=== PATIENT | female | born 1995 | race Two or more races ===

== ENCOUNTER 2023-10-12 00:15 | Observation (INO) ==
--- NOTE | 2023-10-12 01:01 | DR.CP ---
HPI Time Seen Time Seen by Provider: 10/12/23 01:01 PCP Primary Care Physician: NFD Complaint Chief Complaint Doctor Comments: Patient states that she has been having epigastric pain radiating to her esophagus and to her back for 2 hrs. Patient denies: fever, hematemesis, hematochezia,urinary sxs, n,v. Chief Complaint:: PT AMBULATORY IN ED WITH C/O EPIGASTRIC PAIN AND UP ESOPHAGUS RADIATING THROUGH TO BACK AND RIGHT SIDE THAT STARTED APPROX 2 HRS AGO. COVID-19 Coronavirus risk:travel/contact w/high risk person: No Has patient experienced Coronavirus symptoms: No Source History Provided: Patient Mode of Arrival Mode of Arrival: Ambulatory Timing Onset of Chief Complaint: 10/11/23 PMH PMH Past Medical History: No Past Surgical History: No Surgical History: No History Family History History of Family Medical Conditions: Yes Family Medical History: Diabetes Mellitus Social History Does patient currently use any type of tobacco product: No Have you used tobacco products in the last 12 months: No Type of Tobacco Use: None Does any household member use tobacco: No Alcohol Use: None Do you use any recreational Drugs:: No Lives With: Family Lives Where: Home Travel Risk Coronavirus risk:travel/contact w/high risk person: No Has patient experienced Coronavirus symptoms: No Infectious screening In the last 2 months have you had wt loss of >10#?: NO Have you had fever, night sweats or hemotysis?: No Have you traveled outside the country in the last 6 months?: No Isolation: Standard ROS Review of Systems Constitutional: negative Fever Eyes: No Symptoms Reported ENTM: No Symptoms Reported Respiratoy: No Symptoms Reported Cardiovascular: No Symptoms Reported Gastrointestinal/Abdominal: Abdominal Pain (epigastrium) and Food Intolerance; negative Nausea or Vomiting Genitourinary: No Symptoms Reported Neurological: No Symptoms Reported Musculoskeletal: Back Pain (pain radiates to back) Integumentary: No Symptoms Reported Hematologic/Lymphatic: No Symptoms Reported Endocrine: No Symptoms Reported Psychiatric: No Symptoms Reported All Other Systems: Reviewed and Negative PE Vitals Vitals: Vital Signs Temperature 98.0 F Pulse Rate 78 Respiratory Rate 20 Respiratory Rate 20 Blood Pressure 137/74 O2 Sat by Pulse Oximetry 97 General Limitations: No Limitations General Appearance: Alert and In No Apparent Distress Head Head Exam: Normal Inspection Eyes Eye exam: Normal Appearance ENT ENT Exam: Normal Exam Chest Chest Inspection: Normal Inspection Respiratory Respiratory Exam: Normal Lung Sounds Bilat Respiratory Exam: Bilateral: Clear to Auscultation Cardiovascular Cardiovascular Exam: Regular Rate and Normal Rhythm Pulse: Normal Edema: Normal Abdominal Exam Abdominal Exam: Normal Inspection, Soft and Tenderness Abdominal Tenderness: RUQ and Epigastrium Extremities Extremities Exam: Normal Inspection Back Back Exam: Normal Inspection Neurologic Neurological Exam: Alert and Oriented X3 Psychiatric Psychiatric Exam: Normal Affect and Normal Mood Skin Skin Exam: Warm, Dry, Intact and Normal Color MDM Differential Diagnosis Differential Diagnosis: Chest Wall Pain (Pneumonia), Cholelithasis, Gastritis and Pancreatitis COURSE Treatment Treatment: Patient has a wbc 12.2 and her abd/plevis CT revealed Gallstones in the gallbladder in the neck region measuring up to 2cm. Patient has been having severe abdominal pain and received dilaudid 1mg iv and zofran 4mg odt. Patient states that she has had relief of her pain. Discussed case with Dr Cabrera.Dr Cabrera will admit patient to his service for further evaluation.He will consult Dr Chappell (General surgeon) to see the patient. Patient was given zosyn 3.375g iv and LR has been initiated @ 80ml/hr iv. Patient has been stable in the ED. ROR Labs Reviewed Laboratory Results Reviewed?: Yes 10/12/23 02:06 10/12/23 02:06 Laboratory: WBC 12.2 X10^3/uL (3.6-10.0) H 10/12/23 02:06 RBC 3.93 X10^6/uL (3.5-5.4) 10/12/23 02:06 Hgb 11.6 g/dL (12.0-16.0) L 10/12/23 02:06 Hct 34.3 % (36.0-47.0) L 10/12/23 02:06 MCV 87.3 fL (80.0-100.0) 10/12/23 02:06 MCH 29.5 pg (27.0-34.0) 10/12/23 02:06 MCHC 33.8 g/dL (33.0-35.0) 10/12/23 02:06 RDW 12.1 % (11.6-16.5) 10/12/23 02:06 Plt Count 312 X10^3/uL (150.0-450.0) 10/12/23 02:06 MPV 8.1 fL (7.4-11.0) 10/12/23 02:06 Neut % (Auto) 88.2 % (42.0-75.0) H 10/12/23 02:06 Lymph % (Auto) 8.4 % (21.0-51.0) L 10/12/23 02:06 Gove % (Auto) 2.7 % (0.0-13.0) 10/12/23 02:06 Eos % (Auto) 0.0 % (0.9-2.9) L 10/12/23 02:06 Baso % (Auto) 0.7 % (0.2-1.0) 10/12/23 02:06 Neut # (Auto) 10.7 x10^3/uL (2.2-4.8) H 10/12/23 02:06 Lymph # (Auto) 1.0 X10^3/uL (1.3-2.9) L 10/12/23 02:06 Gove # (Auto) 0.3 x10^3/uL (0.3-0.8) 10/12/23 02:06 Eos # (Auto) 0.0 x10^3/uL (0.0-0.2) 10/12/23 02:06 Baso # (Auto) 0.1 X10^3/uL (0.0-0.1) 10/12/23 02:06 Absolute Nucleated RBC 0.0 /100WBC 10/12/23 02:06 Sodium 140 mmol/L (136-145) 10/12/23 02:06 Corrected Sodium 140 mmol/L (136-145) 10/12/23 02:06 Potassium 3.8 mmol/L (3.5-5.1) 10/12/23 02:06 Chloride 103 mmol/L (98-107) 10/12/23 02:06 Carbon Dioxide 25.0 mmol/L (21-32) 10/12/23 02:06 BUN 8 mg/dL (7-18) 10/12/23 02:06 Creatinine 0.75 mg/dL (0.55-1.02) 10/12/23 02:06 Est GFR (MDRD) Af Amer > 60 (>60) 10/12/23 02:06 Est GFR (MDRD) Non-Af > 60 (>60) 10/12/23 02:06 Glucose 118 mg/dL (65-99) H 10/12/23 02:06 Calcium 8.6 mg/dL (8.5-10.1) 10/12/23 02:06 Corrected Calcium TNP 10/12/23 02:06 Total Bilirubin 0.30 mg/dL (0.2-1.0) 10/12/23 02:06 AST 22 Units/L (15-37) 10/12/23 02:06 ALT 29 Units/L (12-78) 10/12/23 02:06 Alkaline Phosphatase 75 Units/L (46-116) 10/12/23 02:06 Total Protein 7.8 g/dL (6.4-8.2) 10/12/23 02:06 Albumin 4.1 g/dL (3.4-5.0) 10/12/23 02:06 Globulin 3.7 g/dL (2.5-4.5) 10/12/23 02:06 Albumin/Globulin Ratio 1.1 Ratio (1.1-2.1) 10/12/23 02:06 Amylase 116 Units/L (25-115) H 10/12/23 02:06 Lipase 33 Units/L (16-77) 10/12/23 02:06 HCG, Qual Negative <10 mIU/mL 10/12/23 02:06 Opioid Opioid Risk Tool Age (Guido box if 16-45): Yes History of Preadolescent Sexual Abuse: No Total: 1 Total Score Risk Category: Low Risk Copyright: Laz ZEP[employer] predicting aberrant behaviors Discharge Plan Diagnosis Discharge Problem: Abdominal pain, acute, Cholelithiasis Discharge Plan Patient Disposition: ADMITTED INPATIENT Condition: Stable Prescriptions: No Action [facility] Concerns: Post Hospitalization: new medications and changes needed to prevent readmission or further decline. Pt educated and given instructions on all concerns. Plan of Treatment: Continue with present treatment and follow up plan. Pt is to keep follow up appointment as instructed and take medications as ordered. Orders to Discharge Patient Discharge Orders: Transfer (Routine); Ordered 10/12/23 Ordered By: Liz Rodriguez Follow ups/Referrals Follow ups/Referrals: NFD,None [Primary Care Provider] - 3 days Instructions Stand Alone Forms: Post Hospital Follow Up Care
[2023-10-12] MEDS: ZOFRAN INJ 4 MG VIAL IVP ONE (02:07)
[2023-10-12] MEDS: PEPCID 20 MG VIAL IVP ONE (02:09)
[2023-10-12] MEDS: DILAUDID INJ IVP ONE (02:11)
[2023-10-12 02:17] LABS: BASOPHILS # (AUTO) 0.1 X10^3/uL (0.0-0.1); BASOPHILS % (AUTO) 0.7 % (0.2-1.0); HEMATOCRIT 34.3 % (36.0-47.0); HEMOGLOBIN 11.6 g/dL (12.0-16.0); LYMPHOCYTES % (AUTO) 8.4 % (21.0-51.0); MEAN CORPUSCULAR HEMOGLOBIN 29.5 pg (27.0-34.0); MEAN CORPUSCULAR HGB CONC 33.8 g/dL (33.0-35.0); MEAN CORPUSCULAR VOLUME 87.3 fL (80.0-100.0); MEAN PLATELET VOLUME 8.1 fL (7.4-11.0); MONOCYTES # (AUTO) 0.3 x10^3/uL (0.3-0.8); MONOCYTES % (AUTO) 2.7 % (0.0-13.0); NEUTROPHILS # (AUTO) 10.7 x10^3/uL (2.2-4.8); NEUTROPHILS % (AUTO) 88.2 % (42.0-75.0); PLATELET COUNT 312 X10^3/uL (150.0-450.0); RED BLOOD COUNT 3.93 X10^6/uL (3.5-5.4); RED CELL DISTRIBUTION WIDTH 12.1 % (11.6-16.5); WHITE BLOOD COUNT 12.2 X10^3/uL (3.6-10.0)
[2023-10-12] MEDS: NS 1,000 ML IV 1,000 ML IV ONE (02:17)
[2023-10-12 02:26] LABS: ALANINE AMINOTRANSFERASE 29 Units/L (12-78); ALBUMIN 4.1 g/dL (3.4-5.0); ALKALINE PHOSPHATASE 75 Units/L (46-116); AMYLASE 116 Units/L (25-115); ASPARTATE AMINO TRANSFERASE 22 Units/L (15-37); BLOOD UREA NITROGEN 8 mg/dL (7-18); CALCIUM 8.6 mg/dL (8.5-10.1); CHLORIDE 103 mmol/L (98-107); COR NA(FOR HYPERGLY) 140 mmol/L (136-145); CREATININE 0.75 mg/dL (0.55-1.02); GLUCOSE 118 mg/dL (65-99); LIPASE 33 Units/L (16-77); POTASSIUM 3.8 mmol/L (3.5-5.1); SODIUM 140 mmol/L (136-145); TOTAL PROTEIN 7.8 g/dL (6.4-8.2); eGFR NON BLACK RACES > 60 (>60)
[2023-10-12 02:38] LABS: SERUM PREGNANCY TEST, QUAL NEGATIVE <10 mIU/mL
--- NOTE | 2023-10-12 03:07 | CT ---
PROCEDURE: CT Abdomen and Pelvis with IV Contrast.HISTORY: epigastric pains; .TECHNIQUE: Axial images were performed through the abdomen and pelvis with the administration of IV contrast with multiplanar reformations . Oral contrast was notadministered . Dose reduction techniques including Automated Exposure Control (AEC) and adjustment of mA and kV were utilized ..COMPARISON: None.TECHNICAL QUALITY: Satisfactory.FINDINGS:Clear lung bases.Liver, spleen, adrenals, and pancreas show no abnormality.Kidneys show normal enhancement with no masses or obstruction.Gallstones in the gallbladder in the neck region measuring up to 2 cm with no inflammation and normal biliary tree.No ascites or pneumoperitoneum.Normal aorta.No lymphadenopathy.No bowel obstruction or inflammation and normal appendix.Pelvis shows small amount of fluid in the cul-de-sac and no masses. Intrauterine device in the endometrium. Normal urinary bladder.No acute bony abnormality.IMPRESSION:1. Cholelithiasis.2. Small amount of fluid in the cul-de-sac likely physiologic.3. No other significant abnormality identified.THIS IS AN ELECTRONICALLY VERIFIED FINAL REPORT10/12/2023 3:04 AM - Electronically signed by Selvin Lowe MD
[2023-10-12] MEDS: ZOSYN VIAL 3.375 GRAMS 3.375 G in NS 100 ML IV 100 ML IV SCH (03:59)
[2023-10-12] MEDS: LR 1,000 ML IV 1,000 ML IV SCH (04:00)
[2023-10-12 05:21] LABS: BILIRUBIN,URINE NEGATIVE (NEGATIVE); BLOOD/HEMOGLOBIN,URINE NEGATIVE (NEGATIVE); GLUCOSE, URINE NEGATIVE (NEGATIVE); KETONES,URINE 2+ (NEGATIVE); LEUKOCYTE ESTERASE ,URINE 1+ (NEGATIVE); NITRITES,URINE NEGATIVE (NEGATIVE); PROTEIN,URINE 1+ (NEGATIVE); UROBILINOGEN,URINE NORMAL (NORMAL)
[2023-10-12 05:29] LABS: APPEARANCE,URINE CLEAR (CLEAR); BACTERIA,URINE TRACE /HPF (NEGATIVE); COLOR,URINE PALE YELLOW (YELLOW); RBC,URINE 0-2 /HPF (0-3); SQUAMOUS EPITHELIAL CELL,UR FEW /HPF (NEGATIVE)
[2023-10-12] MEDS: DILAUDID INJ IVP PRN ×2 (05:36→14:00)
[2023-10-12] MEDS: ZOFRAN INJ 4 MG VIAL IVP PRN (05:41)
[2023-10-12 06:03] VITALS: BMI 28.6
[2023-10-12 06:14] LABS: BASOPHILS # (AUTO) 0.1 X10^3/uL (0.0-0.1); BASOPHILS % (AUTO) 0.9 % (0.2-1.0); EOSINOPHILS # (AUTO) 0.1 x10^3/uL (0.0-0.2); EOSINOPHILS % (AUTO) 0.5 % (0.9-2.9); HEMATOCRIT 34.2 % (36.0-47.0); HEMOGLOBIN 11.5 g/dL (12.0-16.0); LYMPHOCYTES # (AUTO) 0.6 X10^3/uL (1.3-2.9); MEAN CORPUSCULAR HEMOGLOBIN 29.5 pg (27.0-34.0); MEAN CORPUSCULAR HGB CONC 33.6 g/dL (33.0-35.0); MEAN CORPUSCULAR VOLUME 87.7 fL (80.0-100.0); MEAN PLATELET VOLUME 8.5 fL (7.4-11.0); MONOCYTES # (AUTO) 0.2 x10^3/uL (0.3-0.8); MONOCYTES % (AUTO) 1.6 % (0.0-13.0); NEUTROPHILS # (AUTO) 11.3 x10^3/uL (2.2-4.8); PLATELET COUNT 316 X10^3/uL (150.0-450.0); WHITE BLOOD COUNT 12.3 X10^3/uL (3.6-10.0)
[2023-10-12 06:40] LABS: BAND NEUTROPHILS % 3 % (0-10); BASOPHILS % (MANUAL) 1 % (0-1)
[2023-10-12 06:41] LABS: ALANINE AMINOTRANSFERASE 28 Units/L (12-78); ALBUMIN 3.8 g/dL (3.4-5.0); ALKALINE PHOSPHATASE 71 Units/L (46-116); ASPARTATE AMINO TRANSFERASE 22 Units/L (15-37); BLOOD UREA NITROGEN 5 mg/dL (7-18); CALCIUM 8.3 mg/dL (8.5-10.1); CARBON DIOXIDE 24.9 mmol/L (21-32); CHLORIDE 103 mmol/L (98-107); COR NA(FOR HYPERGLY) 139 mmol/L (136-145); CREATININE 0.66 mg/dL (0.55-1.02); GLUCOSE 122 mg/dL (65-99); PLATELET MORPHOLOGY COMMENT NORMAL (NORMAL); POTASSIUM 3.6 mmol/L (3.5-5.1); SODIUM 138 mmol/L (136-145); TOTAL PROTEIN 7.6 g/dL (6.4-8.2); eGFR NON BLACK RACES > 60 (>60)
[2023-10-12] MEDS: OMNIPAQUE 350 mg/mL 100 mL BTL 100 ML ONE (07:00)
[2023-10-12] MEDS: CONSULT PHARMACY - POTASSIUM & MAGNESIUM XX SCH (07:00)
[2023-10-12] MEDS: K-RIDER 10 MEQ/100 ML WATER 10 MEQ/100 ML BAG IV SCH (08:19)
[2023-10-12] MEDS ORDERED: BENADRYL INJ 50 MG VIAL IVP PRN (10:32)
[2023-10-12] MEDS ORDERED: DILAUDID INJ IVP PRN (10:32)
[2023-10-12] MEDS ORDERED: REGLAN INJ 10 MG VIAL IVP PRN (10:32)
[2023-10-12] MEDS: NOZIN NASAL SANITIZER TP ONE (10:32)
[2023-10-12] MEDS ORDERED: BARHEMSYS INJ IVP PRN (10:32)
[2023-10-12] MEDS ORDERED: ZOFRAN INJ 4 MG VIAL IVP PRN (10:32)
[2023-10-12] MEDS: LR 1,000 ML IV 1,000 ML IV ONE (10:33)
[2023-10-12] MEDS: PRECEDEX INJ VIAL ONE (10:34)
[2023-10-12] MEDS: VERSED ONE (10:34)
[2023-10-12] MEDS: MORPHINE SULFATE INJ 10 MG ONE (10:36)
[2023-10-12] MEDS: ANCEF VIAL 1 GRAM ONE (10:45)
[2023-10-12] MEDS: NS 100 ML IV 100 ML ONE (10:45)
[2023-10-12] MEDS: BACTROBAN TOPICAL OINT ONE (10:49)
[2023-10-12] MEDS: MAGNESIUM SULFATE 50% INJ VIAL ONE (10:54)
[2023-10-12] MEDS: ZOFRAN INJ 4 MG VIAL ONE (10:54)
[2023-10-12] MEDS: ROBINUL ONE (10:54)
[2023-10-12] MEDS: DECADRON INJ ONE (10:54)
[2023-10-12] MEDS: PEPCID 20 MG VIAL ONE (10:54)
[2023-10-12] MEDS: DIPRIVAN VIAL 20 ML ONE ×2 (10:54→12:27)
[2023-10-12] MEDS: BRIDION ONE (11:56)
[2023-10-12] MEDS: ZOFRAN INJ 4 MG VIAL IV PRN (13:59)
[2023-10-12] MEDS: D5 1/2 NS 1,000 ML 1,000 ML IV SCH (17:27)
[2023-10-12] MEDS: MAGNESIUM SULFATE 1 GRAM/100 mL PREMIX 1 G/100 ML BAG IV SCH (20:08)
[2023-10-13] MEDS: NS 250 ML IV 25 ML IV PRN (05:20)
[2023-10-13 06:12] LABS: BASOPHILS % (AUTO) 0.3 % (0.2-1.0); HEMATOCRIT 29.8 % (36.0-47.0); HEMOGLOBIN 10.3 g/dL (12.0-16.0); MEAN CORPUSCULAR HEMOGLOBIN 30.2 pg (27.0-34.0); MEAN CORPUSCULAR HGB CONC 34.5 g/dL (33.0-35.0); MEAN CORPUSCULAR VOLUME 87.5 fL (80.0-100.0); MEAN PLATELET VOLUME 8.5 fL (7.4-11.0); MONOCYTES # (AUTO) 0.7 x10^3/uL (0.3-0.8); MONOCYTES % (AUTO) 6.3 % (0.0-13.0); NEUTROPHILS # (AUTO) 8.4 x10^3/uL (2.2-4.8); NEUTROPHILS % (AUTO) 75.4 % (42.0-75.0); PLATELET COUNT 285 X10^3/uL (150.0-450.0); RED CELL DISTRIBUTION WIDTH 12.2 % (11.6-16.5); WHITE BLOOD COUNT 11.2 X10^3/uL (3.6-10.0)
[2023-10-13 06:24] LABS: ALANINE AMINOTRANSFERASE 35 Units/L (12-78); ALBUMIN 3.2 g/dL (3.4-5.0); ALKALINE PHOSPHATASE 52 Units/L (46-116); ASPARTATE AMINO TRANSFERASE 34 Units/L (15-37); BLOOD UREA NITROGEN 2 mg/dL (7-18); CALCIUM 8.1 mg/dL (8.5-10.1); CARBON DIOXIDE 27.6 mmol/L (21-32); CHLORIDE 103 mmol/L (98-107); COR CA(FOR HYPOALB) 8.7 mg/dL (8.5-10.1); COR NA(FOR HYPERGLY) 139 mmol/L (136-145); CREATININE 0.54 mg/dL (0.55-1.02); GLUCOSE 141 mg/dL (65-99); MAGNESIUM 2.1 mg/dL (2.0-2.9); POTASSIUM 3.4 mmol/L (3.5-5.1); SODIUM 138 mmol/L (136-145); TOTAL PROTEIN 6.6 g/dL (6.4-8.2); eGFR NON BLACK RACES > 60 (>60)
[2023-10-13 06:58] VITALS: RESP 18
[2023-10-13] MEDS: CONSULT PHARMACY - POTASSIUM & MAGNESIUM XX SCH (06:59)
[2023-10-13] MEDS ORDERED: CONSULT PHARMACY - POTASSIUM & MAGNESIUM XX SCH (08:00)
[2023-10-13] MEDS: K-DUR TAB 20 MEQ PO SCH (10:16)
[2023-10-13 12:17] VITALS: BP 104/62; PULSE 73; TEMP 97; O2SAT 97
== END 2023-10-13 12:30 | disposition home or self-care (01) ==
LOC: MED/SURG 00:15 → ER 00:15 → MED/SURG 04:35
PROVIDERS: ADMIT Surgery; ATTEND Surgery
DX: K82.1 Hydrops of gallbladder; K80.00 Calculus of gallbladder with acute cholecystitis without obstruction; R10.84 Generalized abdominal pain; E83.42 Hypomagnesemia; R10.13 Epigastric pain; Z65.8 Other specified problems related to psychosocial circumstances